=== PATIENT | male | born 1955 | race Caucasian/White ===

== ENCOUNTER 2024-05-06 02:51 | Day surgery (SDC) | payer OTHER, SELFPAY ==
[2024-04-15 11:56] VITALS: BMI 26.9
[2024-05-06] VITALS (8 sets, daily range): BP systolic 98–140; BP diastolic 62–110; PULSE 87–110; RESP 20–25; TEMP 37; O2SAT 91–97
[2024-05-06] MEDS: LACTATED RINGERS 1,000 ML 150 ML IV CONT (11:19)
[2024-05-06 11:20] LABS: Glucose Point of Care 164 mg/dl (65-105)
--- NOTE | 2024-05-06 12:57 | WPDANESEPPF ---
Anes - Initial Pre Proc Eval Procedure: Operation Date: 05/06/24 12:30 Proposed Procedures p Colonoscopy - Leland Nunes MD Date/Time: 05/06/24 12:57 Surgeon: Leland Nunes MD Pre Op Diagnosis: colon cancer Patient Data Age: 69 Gender: M Height: 1.78 m Weight: 85.6 kg Last Vital Signs Temp 37.0 C 05/06/24 11:06 Pulse 110 H 05/06/24 11:06 Resp 20 05/06/24 11:06 BP 140/110 H 05/06/24 11:06 Pulse Ox 97 05/06/24 11:06 O2 Del Method Room Air 05/06/24 11:06 Allergies Allergy/AdvReac Type Severity Reaction Status Date / Time No Known Allergies Allergy Verified 05/06/24 11:06 Home Medications ?Medication ?Instructions ?Recorded ?Confirmed ?Type allopurinol 100 mg tablet 100 mg PO DAILY 04/15/24 05/06/24 History atorvastatin 20 mg tablet 20 mg PO DAILY 04/15/24 05/06/24 History calcitriol 0.25 mcg capsule 0.25 mcg PO DAILY 04/15/24 05/06/24 History dapagliflozin propanediol 10 mg 10 mg PO DAILY 04/15/24 05/06/24 History tablet (Farxiga) ergocalciferol (vitamin D2) 1,250 1,250 mcg PO DAILY 04/15/24 05/06/24 History mcg (50,000 unit) capsule finasteride 5 mg tablet 5 mg PO DAILY 04/15/24 05/06/24 History semaglutide 0.25 mg or 0.5 mg (2 0.25 mg subcut WEEKLY 04/15/24 05/06/24 History mg/3 mL) subcutaneous pen injector (Ozempic) Laboratory Tests 05/06/24 11:11 POC Capillary Glucose 164 H mg/dl (65-105) Patient hx anesthesia problems: none Family hx anesthesia problems: none Results Review: All pre-operative results and documents have been reviewed as part of the pre-operative evaluation. [facility] Social History Social History Smoking packs per day: 1 Smoking cigarettes per day: 20.0 Years smoked: 20 Smoking pack-years: 20.00 Smoking status: Former smoker Tobacco type: cigarettes Alcohol intake: never Substance use: never Substance use type: does not use Living arrangements: with family Spiritual care concerns: No Anes - Eval Final PreProcedure Day of Procedure 05/06/24 12:57 Patient weight: overweight Heart: regular rate and rhythm Lungs: decreased breath sounds Airway: Mallampati scale class II Neurological: alert and oriented Last oral intake: >/= 8 hours ASA classification: III Emergent: no Anesthetic plan: proceed Anesthesia type and monitoring: general GIVS and standard monitoring Results Review: All pre-operative results and documents have been reviewed as part of the pre-operative evaluation. Informed Consent: The patient's anesthetic plan and its attendant risks and benefits were discussed with the patient/family/POA. Questions were solicited and answers provided to the satisfaction of the patient/family/POA.
--- NOTE | 2024-05-06 13:02 | PM.IMHP ---
H&P: HPI History of Present Illness Date/Time: 05/06/24 13:02 Chief Complaint: History of colon cancer Narrative: the patient underwent a right hemicolectomy 2 years ago for the finding of colon cancer. This is his 1st colonoscopy after surgery. He is asymptomatic from a GI standpoint. Review of Systems Review of Systems: All systems reviewed & are unremarkable except as noted in HPI and below PMFSH Social History Social History Smoking packs per day: 1 Smoking cigarettes per day: 20.0 Years smoked: 20 Smoking pack-years: 20.00 Smoking status: Former smoker Tobacco type: cigarettes Alcohol intake: never Substance use: never Substance use type: does not use Living arrangements: with family Spiritual care concerns: No Meds Home Medications and Allergies Home Medications ?Medication ?Instructions ?Recorded ?Confirmed ?Type allopurinol 100 mg tablet 100 mg PO DAILY 04/15/24 05/06/24 History atorvastatin 20 mg tablet 20 mg PO DAILY 04/15/24 05/06/24 History calcitriol 0.25 mcg capsule 0.25 mcg PO DAILY 04/15/24 05/06/24 History dapagliflozin propanediol 10 mg 10 mg PO DAILY 04/15/24 05/06/24 History tablet (Farxiga) ergocalciferol (vitamin D2) 1,250 1,250 mcg PO DAILY 04/15/24 05/06/24 History mcg (50,000 unit) capsule finasteride 5 mg tablet 5 mg PO DAILY 04/15/24 05/06/24 History semaglutide 0.25 mg or 0.5 mg (2 0.25 mg subcut WEEKLY 04/15/24 05/06/24 History mg/3 mL) subcutaneous pen injector (Ozempic) Allergies Allergy/AdvReac Type Severity Reaction Status Date / Time No Known Allergies Allergy Verified 05/06/24 11:06 Vital Signs Vital Signs - 24 hr 05/06/24 11:06 Temperature 98.6 F Pulse Rate 110 H Respiratory Rate 20 Blood Pressure 140/110 H Pulse Oximetry 97 Oxygen Delivery Room Air Exam Const: General: cooperative and healthy appearing Resp: Effort & Inspection: normal respiratory effort and able to speak in complete sentences Auscultation: clear to auscultation bilaterally Cardio: Rate: regular rate Rhythm: regular rhythm GI: Inspection: normal to inspection GI Palp: No No hepatosplenomegaly present Auscultation: normal bowel sounds Rectal Exam: deferred Skin: General skin exam: normal color Psych: Appearance: grossly normal Mental Status: mental status grossly normal Assessment and Plan Assessment and plan (1) History of colon cancer: Code(s): Z85.038 - Personal history of other malignant neoplasm of large intestine Status: Acute Assessment and Plan: The patient is deemed a good candidate for the procedure. Consent signed. Will proceed.
--- NOTE | 2024-05-06 14:48 | SUR.PHASEII ---
Spoke with Dr. Leonard in regards to patient's oxygenation during recovery after patient had aspirated during the procedure. Vital signs reported to Dr. Leonard as well as the range of 93% to 96% O2 on room air but currently the patient was at 91%. I asked Dr. Leonard where he would like the patient to be as far as oxygenation before he would be okay with him being discharged home. Per Dr. Leonard, the patient was okay to be discharged home with an incentive spirometer. An incentive spirometer was given to the patient and instructions on how to use it were given. Patient also demonstrated how to use. I instructed the patient that if he were to get short of breath, get a fever, or start coughing up bloody sputum to come into our ER.
== END 2024-05-06 15:00 | disposition home or self-care (01) ==
PROVIDERS: PCP Internal Medicine; Visit Provider Internal Medicine Gastroenterology
PROC: 0DJD8ZZ Inspection of Lower Intestinal Tract, Via Natural or Artificial Opening Endoscopic (ICD-10-PCS; CPT 45378; principal; 2024-05-06 12:30)
DX: Z08 Encounter for follow-up examination after completed treatment for malignant neoplasm (principal); D12.3 Benign neoplasm of transverse colon; K57.30 Diverticulosis of large intestine without perforation or abscess without bleeding; K63.89 Other specified diseases of intestine; Z79.84 Long term (current) use of oral hypoglycemic drugs; Z79.85 Long-term (current) use of injectable non-insulin antidiabetic drugs; Z98.890 Other specified postprocedural states; Z90.49 Acquired absence of other specified parts of digestive tract; Z87.891 Personal history of nicotine dependence; Z85.038 Personal history of other malignant neoplasm of large intestine
CPT/HCPCS: 45385; 82948; 88305; J2704; J7120